=== PATIENT | male | born 1970 | race Caucasian/White ===

== ENCOUNTER 2025-02-20 08:53 | Outpatient (CLI) | payer OTHER, SELFPAY | END 2025-02-20 08:54 | disposition home or self-care (01) | LOC: NFLDREF 02-26 07:56 | PROVIDERS: PCP Family Medicine; Referring Provider Family Medicine; Visit Provider Family Medicine | DX: Z13.1 Encounter for screening for diabetes mellitus (principal); Z13.6 Encounter for screening for cardiovascular disorders; Z12.5 Encounter for screening for malignant neoplasm of prostate | CPT/HCPCS: 80053; 80061; G0103 ==

== ENCOUNTER 2025-02-26 21:07 | Emergency (ER) | payer OTHER, SELFPAY ==
--- OUTSIDE RECORDS SUMMARY | 2025-02-26 21:09 | XMS_ITS | Clinical Summary ---
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 LEG PAIN Resolved Problems Problem Noted Date Diagnosed Date Resolved Date Lump in neck 08/20/2010 09/22/2010 Immunizations Immunization Administration Dates Next Due Tdap 08/20/2010 Family History Medical History Relation Name Comments Diabetes Father Heart Disease Father Cancer-breast Mother Relation Name Status Comments Father Mother Alive Social History Tobacco Use Types Packs/Day Years Used Date Smoking Tobacco: Never Smokeless Tobacco: Current Chew Comments:ocassionally Alcohol Use Standard Drinks/Week Comments Yes 0 (1 standard drink = 0.6 oz pur e alcohol) once per wk Sex and Gender Information Value Date Recorded Sex Assigned at Not on file 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 Gender Identity Not on file Sexual Orientation Not on file Obstetrics History Last Filed Vital Signs Vital Sign Reading Time Taken Comments Blood Pressure 134/83 02/11/2015 12:03 PM CDT Pulse 79 02/11/2015 12:03 PM CDT Temperature 36.6 C (97.9 F) 09/30/2010 11:00 AM CDT Respiratory Rate 16 09/30/2010 11:00 AM CDT Oxygen Saturation 95% 09/30/2010 11:00 AM CDT Inhaled Oxygen Concentration - - Weight 107.5 kg (237 lb) 02/11/2015 12:03 PM CDT Height 182.9 cm (6') 09/29/2010 11:47 AM CDT Body Mass Index 32.14 09/29/2010 11:47 AM CDT Plan of Treatment Health Maintenance Due Date Last Done Comments Depression screening for age 12+ 1982 HIV for age 15-65 1985 BMI (ht and wt on same day) for age 18+ 02/17/1988 Hepatitis C screening for age 18-79 02/17/1988 Hepatitis B series for 19+ ( 1 of 3 - 19+ 3-dose series) 1989 Colonoscopy through age 75 2015 Lipids for age 45-75 08/21/2015 08/20/2010 Pneumococcal series for age 50+ (1 of 1 - PCV) 020 Zoster (shingles) series for age 50+ (1 of 2) 02/17/20 20 Tetanus booster 08/20/2020 08/20/2010 COVID-19 vaccine series ( - 2023- season) 5 Influenza Vaccine (#1) 2025 RSV vaccine for adults or pr egnancy (1 - 1-dose 75+ series) 2045 Procedures Procedure Name Priority Date/Time Associated Diagnosis Comments LIPID PANEL W REFLEX MEASURED LDL Routine 08/20/2010 9:28 AM COLD WORKING INSPECTOR Annual physical exam from Last 3 Months or Most Recently Relevant to Health Maintenance Results * LIPID PANEL W REFLEX MEASURED LDL (08/20/2010 9:28 AM COLD WORKING INSPECTOR) CHOLESTEROL,TOTAL 153 110 - 199 mg/dL [facility] TRIGLYCERIDES 56 40 - 149 mg/dL [facility] HDL CHOLESTEROL 42 >40 mg/dL [facility] CHOL/HDL RATIO 3.64 <4.51 [facility] LDL CHOLESTEROL 100 <131 mg/dL [facility] PATIENT STATUS Fasting [facility] Blood specimen (specimen) BLOOD SPECIMEN / Unknown 08/20/2010 9:28 AM COLD WORKING INSPECTOR 08/20/2010 9:26 AM COLD WORKING INSPECTOR us Josh Salinas MD CHEMISTRY Final R esult [facility] INTERNAL ZIP [phone] [address] from Last 3 Months or Most Recently Relevant to Health Maintenance Insurance [place] [id number] Advance Directives * Full Code (Latest Code Status on File) Date Activated Date Inactivated Comments 09/29/2010 11:38 AM 09/30/2010 3:21 PM
--- OUTSIDE RECORDS SUMMARY | 2025-02-26 21:09 | XMS_ITS | Clinical Summary ---
Author Organization [facility] Address [address] [place] [address] Care Team Providers Care Heel Curver Name Role Phone Therese Cain MD Primary Care Provider [phone] Source Comments You are receiving this document as you are listed as the primary care provider,follow-up provider, or the patient has been referred to you for consultation.This is in compliance with the Medicare and[facility] Systemcaid EHR Incentive Program,which states Providers who transition their patient to another setting of careor provider of care or refers their patient to another provider of care shouldprovide summary care record for each transition of care or referral. [facility] Allergies No known active allergies Medications No known medications Active Problems No known active problems Family History Medical History Relation Name Comments Heart Attack Father Relation Name Status Comments Father Mother Alive Social History Tobacco Use Types Packs/Day Years Used Date Smoking Tobacco: Never Tobacco Cessation:Counseling Given: Not Answered Alcohol Use Standard Drinks/Week Comments Yes 0 (1 standard drink = 0.6 oz pur e alcohol) occ PHQ-2 Answer Date Recorded PHQ-2 Score 0 08/09/2023 Sex and Gender Information Value Date Recorded Sex Assigned at Not on file Legal Sex Male 7:15 AM CDT Gender Identity Not on file Sexual Orientation Not on file Last Filed Vital Signs Vital Sign Reading Time Taken Comments Blood Pressure 138/88 08/09/2023 1:02 PM SWIMMING POOL SALESPERSON Pulse 72 08/09/2023 1:02 PM SWIMMING POOL SALESPERSON Temperature - - Respiratory Rate - - Oxygen Saturation - - Inhaled Oxygen Concentration - - Weight 124.6 kg (274 lb 9.6 oz) 08/09/2023 1:02 PM SWIMMING POOL SALESPERSON Height 182.9 cm (6') 08/09/2023 1:02 PM SWIMMING POOL SALESPERSON Body Mass Index 37.24 08/09/2023 1:02 PM SWIMMING POOL SALESPERSON Plan of Treatment Health Maintenance Due Date Last Done Comments Colon Cancer Screening Plan Due 1970 Hep C Screening (Preventive Services) 1970 PSA Screening Discussion 1970 HIV Screening (Preventive Services) 1986 Adult Preventive Visit 02/17/1988 HepB Vaccine (1) 1989 Cholesterol 2005 Pneumococcal Vaccine 50+ Yrs (1 of 1 - PCV) 02/17/2020 Zoster/Shingles Vaccine (1 o f 2) 02/17/2020 COVID-19 Vaccine (1 - 2023-2 5 season) 2025 Influenza Vaccine (#1) 2025 DTaP/Tdap/Td Vaccine (3 - Tdap) 07/28/2031 07/28/2021, 08/20/2010 HepA Vaccine Aged Out No longer eligi ble based on patient's age to complete this topic Hib Vaccine Aged Out No longer eligi ble based on patient's age to complete this topic IPV (Polio) Vaccine Aged Out No longe r eligible based on patient's age to complete this topic MCV4 Vaccine Aged Out No longer eligi ble based on patient's age to complete this topic Meningococcal B Vaccine Aged Out No l onger eligible based on patient's age to complete this topic Insurance [employer] Care Teams Heel Curver Relationship Specialty Start Date End Date Therese Cain MD [address] [place] [address] PCP - General Family Practice 08/15/23
[2025-02-26 21:10] VITALS: BP 125/76; PULSE 97; RESP 16; TEMP 36.5; O2SAT 98; BMI 35.7
--- NOTE | 2025-02-26 21:36 | CRLHL7_ITS ---
For Patients: As a result of the Cures Act, medical imaging exams and procedure reports are released immediately into your electronic medical record. You may view this report before your referring provider. If you have questions, please contact your health care provider. Indication: Fall, swelling Technique: Three views of the right knee Comparison: None Findings/Impression: Extensive prepatellar soft tissue edema. No acute fracture or malalignment is appreciated. Dictated by Jarod Gerardo MD @ 02/26/2025 10:00:56 PM (Electronically Signed)
--- NOTE | 2025-02-26 21:37 | ED_ITS ---
HPI - General Adult General Chief complaint: Extremity Pain/Injury, Lower Stated complaint: R knee pain/swollen Time Seen by Provider: 02/26/25 21:17 Source: patient Mode of arrival: ambulatory Limitations: no limitations History of Present Illness HPI narrative: 55-year-old male presenting today with knee swelling. He states that about a month ago he fell on that knee and it has been sore ever since. He does have a history of bilateral knee discomfort especially with standing after sitting for prolonged periods of time and he has heard cracking in his knees. For today he developed pain and swelling that came on very suddenly. He denies any trauma today. He does state that he developed a fever of 101 today earlier. He did take NSAIDs prior to arrival. It hurts to walk, he has to place the foot very gingerly on the ground. He denies pain in other joints. Patient is with 1 partner. Related Data Previous Rx's ?Medication ?Instructions ?Recorded cephalexin 500 mg capsule 500 mg PO QID 7 days #28 cap s 02/26/25 Allergies Allergy/AdvReac Type Severity Reaction Status Date / Time hayfever Allergy Mild Uncoded 02/20/25 07:58 Review of Systems Status of ROS: Reports: 10 or more systems reviewed and unremarkable except as noted in History and below [facility] Medical History Low back pain (09/2016) ?M54.50 - Low back pain, unspecified (ICD-10) Loss of taste ?R43.2 - [place] (ICD-10) Lateral epicondylitis of left elbow (09/2016) ?M77.12 - Lateral epicondylitis, left elbow (ICD-10) Social History What is your current living situation?: I presently have a place to live Problems where you live: no known problems In the past 12 months, utilities in danger of being shut off: no In past 12 months, lack of transportation kept you from medical appts, meetings, work, or getting things needed for daily living: no In the past 12 mos, have been you worried that your food would run out before you had money to buy more?: never true In the past 12 mos, the food you bought just didn't last and you didn't have money to buy more?: never true How often does anyone, including family, friends and others, physically hurt you : never How often does anyone, including family, friends and others, insult or talk down to you: never How often does anyone, including family, friends and others, threaten you with harm: never How often does anyone, including family, friends and others, scream or curse at you: never Exam Narrative: Exam Narrative: Overweight, well-developed patient in no acute distress. Alert and oriented. Answers questions appropriately. Mood and affect are appropriate. Thoughts are goal oriented and rational. No tangential or magical thinking noted. Patient speaks in full sentences without needing to catch his breath. HEENT: Normocephalic atraumatic. Extraocular muscles are intact. Conjunctivae are moist without any icterus noted. Moist mucous membranes. Extremities: Bilateral lower extremities are without edema. Normal DP and PT pulses. Patient has an obvious swelling of the right knee. Knee is hot to touch with very mild erythema over it. Swelling appears to be over the joint not in it. He has no pain with passive range of motion. He does have pain of the anterior knee with active range of motion. No broken skin. Skin: Well perfused. Const: Vital Signs, click to edit/add: Vital Signs - 24 hr 02/26/25 21:10 Temperature 97.7 F Pulse Rate [Pulse Oximeter] 97 Respiratory Rate 16 Blood Pressure [Ri ght Upper Arm] 125/76 Pulse Oximetry 98 Oxygen Delivery Me thod Room Air Course Course ED Course: Differential includes bursitis and septic bursitis. Less likely but not impossible would be a septic joint. CBC does show an elevated white cell count of 15.2 with 81% neutrophils. Chemistries are unremarkable. Normal lactate. CRP is 2.2 Blood cultures drawn. Procedure: Bursal aspiration. Performed by Dr. Chris. Knee was cleaned in the usual sterile manner within a sterile field. 18 gauge needle was inserted superficially over the anterior knee into the bursal sac and 10 mL of hazy straw-colored but blood-tinged fluid was withdrawn. 6 mL were sent for culture, Gram stain, and cell counts. Patient tolerated this procedure well. G stain did not see any organisms. Fluid did contain over 100,000 wbc's. First dose of Keflex given while the patient was here. Vital Signs Vital signs: Initial Vital Signs Temperature 97.7 F 02/26/25 21:10 Temperature Source Temporal Artery Scan 02/26/25 21:10 Pulse Rate 97 02/26/25 21:10 Respiratory Rate 16 02/26/25 21:10 Blood Pressure 125/76 02/26/25 21:10 Blood Pressure Mean 92 02/26/25 21:10 Blood Pressure Position Sitting 02/26/25 21:10 Pulse Oximetry 98 02/26/25 21:10 Oxygen Delivery Method Room Air 02/26/25 21:10 Vital Signs Temperature 97.7 F 02/26/25 21:10 Pulse Rate 97 02/26/25 21:10 Respiratory Rate 16 02/26/25 21:10 Blood Pressure 125/76 02/26/25 21:10 Pulse Oximetry 98 02/26/25 21:10 Oxygen Delivery Method Room Air 02/26/25 21:10 Temperature 97.7 F 02/26/25 21:10 Pulse Rate 97 02/26/25 21:10 Respiratory Rate 16 02/26/25 21:10 Blood Pressure 125/76 02/26/25 21:10 Pulse Oximetry 98 02/26/25 21:10 Oxygen Delivery Method Room Air 02/26/25 21:10 Medical Decision Making MDM Narrative Medical decision making narrative: 55-year-old male with knee pain, physical examination and laboratory workup concerning for septic bursitis. Will treat with Keflex q.i.d.. I would like for him to have a follow-up in 24-36 hours. Will make antibiotic/treatment changes as needed pending bursa and blood cultures. Lab Data Lab results reviewed: Yes I reviewed the patient's lab results Labs: Lab Results 02/26/25 02/26/25 Range/Units 21:50 22:50 WBC 15.28 H (4.50-11.00) K/uL RBC 4.56 (4.30-5.90) m/uL Hgb 13.4 L (13.5-17.5) gm/dL Hct 39.5 (37.0-53.0) % MCV 87 (80-100) fL MCH 29 (26-34) pg MCHC 34 (32-36) gm/dL RDW Coeff of Tom 12.9 (11.5-15.5) % Plt Count 182 (140-440) K/uL Neut % (Auto) 86.1 H (42.0-72.0) % Lymph % (Auto) 5.2 L (20-44) % [place] % (Auto) 7.5 (0.0-11.0) % Eos % (Auto) 0.1 (0.0-7.0) % Baso % (Auto) 0.1 (0.0-3.0) % Neut # (Auto) 13.20 H (1.7-7.0) K/uL Lymph # (Auto) 0.80 L (0.90-2.90) K/uL [place] # (Auto) 1.10 H (0.00-0.90) K/UL Eos # (Auto) 0.00 (0.00-0.50) K/uL Baso # (Auto) 0.00 (0.00-0.30) K/uL Abs Immat Gran (auto) 0.20 (0.00-0.30) K/uL Imm/Tot Granulo (auto) 1.0 % ESR 3 (2-15) mm/hr Sodium 137 (135-149) mmol/L Potassium 3.9 (3.6-5.1) mmol/L Chloride 105 (96-114) mmol/L Carbon Dioxide 26 (20-32) mmol/L Anion Gap 6 L (7-15) mEq/L BUN 18 (7-30) mg/dL Creatinine 1.1 (0.5-1.5) mg/dL Estimated Creat Clear 83.28 Estimated GFR 79 ml/min Glucose 136 H (60-115) mg/dL Lactate 1.5 (0.5-1.9) mmol/L Calcium 8.8 (8.4-10.6) mg/dL C-Reactive Protein 2.2 H (0.5-1.0) mg/dL Fluid Volume 6 Fluid Color Blood Tinged A Fluid Appearance Cloudy A Fluid WBC 331997 Cells/uL Fluid RBC 35958 Cells/uL Fluid Polynuclear WBCs 93 % Fluid Mononuclear WBCs 7 % Imaging Data X-ray knee: Attestation: I have reviewed the pertinent imaging results. Radiologist's impression: Indication: Fall, swelling Technique: Three views of the right knee Comparison: None Findings/Impression: Extensive prepatellar soft tissue edema. No acute fracture or malalignment is appreciated. Discharge Plan Discharge Clinical Impression: Septic bursitis Patient Disposition: Home, Self-Care Condition: Stable Additional Instructions: Take all antibiotics as prescribed. Can take your next dose of antibiotics 1st thing in the morning. You will need to follow-up with your primary care provider in 24-36 hours. You should return to the emergency department if you develop vomiting, worsening pain or weakness. Blood cultures and bursal fluid cultures are pending-you may receive a phone call to change your treatment should these cultures come back positive. Prescriptions: New cephalexin 500 mg capsule 500 mg PO QID 7 Days Qty: 28 0RF Follow Up/Referrals: Johan Owens MD [Primary Care Provider, Family Practice] Stand Alone Forms: [employer] Info Instructions
[2025-02-26 21:56] LABS: Lactate* 1.5 mmol/L (0.5-1.9)
[2025-02-26 22:11] LABS: Chloride* 105 mmol/L (96-114); Hematocrit* 39.5 % (37.0-53.0); Hemoglobin* 13.4 gm/dL (13.5-17.5); Immature Granulocytes Pct Auto 1.0 %; Lymphocytes Absolute Auto 0.80 K/uL (0.90-2.90); Mean Corpuscular HGB Conc 34 gm/dL (32-36); Mean Corpuscular Hemoglobin 29 pg (26-34); Mean Corpuscular Volume 87 fL (80-100); Potassium* 3.9 mmol/L (3.6-5.1); RDW Coefficient of Variation % 12.9 % (11.5-15.5); Red Blood Count* 4.56 m/uL (4.30-5.90); Sodium* 137 mmol/L (135-149); White Blood Count* 15.28 K/uL (4.50-11.00)
[2025-02-26 22:14] LABS: Anion Gap 6 mEq/L (7-15); Blood Urea Nitrogen* 18 mg/dL (7-30); Calcium* 8.8 mg/dL (8.4-10.6); Carbon Dioxide* 26 mmol/L (20-32); Creatinine* 1.1 mg/dL (0.5-1.5); Est. Creatinine Clearance* 83.28; Estimated Glomerular Filt Rate 79 ml/min; Glucose* 136 mg/dL (60-115)
[2025-02-26 22:20] LABS: Immature Granulocytes Abs Auto 0.20 K/uL (0.00-0.30); Slide Review Reflex No
[2025-02-26 22:51] LABS: Erythrocyte SedimentationRate* 3 mm/hr (2-15)
[2025-02-26 23:23] LABS: BF Clarity* Cloudy; BF Total Volume* 6
[2025-02-26 23:25] LABS: Mononuclear WBC Body Fluid* 7 %; Polynuclear WBC Body Fluid* 93 %; RBC, Body Fluid* 44000 Cells/uL; WBC, Body Fluid* 121937 Cells/uL
== END 2025-02-27 00:05 | disposition home or self-care (01) ==
PROVIDERS: Emergency Provider Family Medicine; PCP Family Medicine
DX: M71.161 Other infective bursitis, right knee (principal)
CPT/HCPCS: 20610; 36415; 73562; 80048; 83605; 85025; 85651; 86140; 87040; 87070; 87186; 87205; 89051; 99283; 99285; A9270

== ENCOUNTER 2025-03-20 06:22 | Outpatient (CLI) | payer OTHER, SELFPAY ==
--- NOTE | 2025-03-20 07:53 | P.ANES_ITS ---
Anesthesia Charges Start Date/Time Anesthesia Start Date: 03/20/25 Anesthesia Start Time: 07:11 Stop Date/Time Anesthesia Stop Date: 03/20/25 Anesthesia Stop Time: 07:39 Coding CPT Codes CPT Codes: TONI LWR INTST NDSC NOS - 71264 ([id number]) P2 - PATIENT W/MILD SYST DISEASE, QK - FIELD CROP HARVEST WORKER 2-4 CNCRNT ANES PROC
--- NOTE | 2025-03-20 07:53 | W.ANESCHARGE ---
Anesthesia Charges Start Date/Time Anesthesia Start Date: 03/20/25 Anesthesia Start Time: 07:11 Stop Date/Time Anesthesia Stop Date: 03/20/25 Anesthesia Stop Time: 07:39 Coding CPT Codes CPT Codes: TONI LWR INTST NDSC NOS - 12544 ([id number]) P2 - PATIENT W/MILD SYST DISEASE, QK - STEAM FITTER SUPERVISOR 2-4 CNCRNT ANES PROC
--- NOTE | 2025-03-20 10:31 | P.ANES_ITS ---
Anesthesia Charges Start Date/Time Anesthesia Start Date: 03/20/25 Anesthesia Start Time: 07:11 Stop Date/Time Anesthesia Stop Date: 03/20/25 Anesthesia Stop Time: 07:39 Coding CPT Codes CPT Codes: TONI LWR INTST NDSC NOS - 45897 ([id number]) QK - HOSPICE CARE CONSULTANT 2-4 CNCRNT TONI PROC, QX - SOFTWARE PROJECT LEAD SVC W/ MD MED DIRECTION, P2 - PATIENT W/MILD SYST DISEASE
--- NOTE | 2025-03-20 10:31 | W.ANESCHARGE ---
Anesthesia Charges Start Date/Time Anesthesia Start Date: 03/20/25 Anesthesia Start Time: 07:11 Stop Date/Time Anesthesia Stop Date: 03/20/25 Anesthesia Stop Time: 07:39 Coding CPT Codes CPT Codes: TONI LWR INTST NDSC NOS - 62392 ([id number]) QK - LAVATORY ATTENDANT 2-4 CNCRNT TONI PROC, QX - ROLL FILLER SVC W/ MD MED DIRECTION, P2 - PATIENT W/MILD SYST DISEASE
== END 2025-03-20 06:23 | disposition home or self-care (01) ==
LOC: OP CLINIC 06:22
PROVIDERS: PCP Family Medicine; Visit Provider Surgery
DX: Z12.11 Encounter for screening for malignant neoplasm of colon (principal); D12.3 Benign neoplasm of transverse colon; D12.5 Benign neoplasm of sigmoid colon
CPT/HCPCS: 00811; 00812; 45385; J2704